=== PATIENT | female | born 1985 ===

== ENCOUNTER 2017-09-08 | Emergency (ER) | payer MEDICAID ==
[2017-09-08 00:08] VITALS: BP 106/64; PULSE 69; TEMP 98.2; O2SAT 100
[2017-09-08] MEDS ORDERED: Tetanus/Diphtheria Toxoids 0.5 ml Syringe IM ONE (00:41)
--- NOTE | 2017-09-08 00:46 | C.PDOC ---
History Of Present Illness 32 year old female presents to the ED with complaints of a laceration to the left thumb sustained yesterday at 1800. Patient reports while attempting to slice a pumpkin she cut her left thumb. Patient denies weakness, numbness, and states Tetanus vaccine is not up to date. Time Seen by Provider: 09/08/17 00:13 Chief Complaint (Nursing): Abnormal Skin Integrity History Per: Patient History/Exam Limitations: no limitations Onset/Duration Of Symptoms: Days (1 day ) Current Symptoms Are (Timing): Still Present Location Of Injury: Left: Hand Recent travel outside of the [place]: No Past Medical History Reviewed: Historical Data, Nursing Documentation, Vital Signs Vital Signs: Last Vital Signs Temp 98.2 F 09/08/17 00:03 Pulse 69 09/08/17 00:03 Resp 20 09/08/17 00:55 BP 106/64 09/08/17 00:03 Pulse Ox 100 09/08/17 02:21 Family History: States: Unknown Family Hx - Social History Hx Alcohol Use: No Hx Substance Use: No - Immunization History Hx Tetanus Toxoid Vaccination: No Hx Influenza Vaccination: No Hx Pneumococcal Vaccination: No Review Of Systems Skin: Positive for: Other (laceration ) Neurological: Negative for: Weakness, Numbness Physical Exam - Physical Exam Appears: Non-toxic, No Acute Distress Skin: Warm, Dry, No Rash, Other (0.5 cm superficial laceration to palmar aspect of left thumb) Head: Atraumatic, Normacephalic, No Tenderness Eye(s): bilateral: Normal Inspection, PERRL, EOMI Oral Mucosa: Moist Extremity: Normal ROM, Capillary Refill (< 2 seconds ), No Swelling, Other (no active bleeding to left thumb ) Pulses: Left Radial: Normal, Right Radial: Normal Neurological/Psych: Oriented x3 ED Course And Treatment O2 Sat by Pulse Oximetry: 100 (RA) Pulse Ox Interpretation: Normal Progress Note: Patient was given Tetanus vaccine. Laceration - Laceration Repair Left thumb Wound Length (In cm): 0.5 Description Of Wound: Linear Wound Cleansed With: Betadine, Sterile Saline Wound Examination: Irrigated With Saline, No FB With Wound Exploration, No Tendon Injury With Wound Exploration Wound Closure: Steri Strips (2), Skin Glue Wound Complexity: Simple Disposition - Disposition Referrals: Ezekiel,Jose E, MD [Primary Care Provider] - Disposition: HOME/ ROUTINE Disposition Time: 00:42 Condition: STABLE Additional Instructions: Please keep wound clean and dry for at least 2 days Return to ER if worse Instructions: Skin Adhesive Care (ED), Steristrips (ED) Forms: [facility] (Tajik), Work Excuse Print Language: LITHUANIAN - Clinical Impression Clinical Impression: Finger laceration - PA / CARE CONNECTOR / Resident Statement MD/DO has reviewed & agrees with the documentation as recorded. - Scribe Statement The provider has reviewed the documentation as recorded by the Scribe Rylee Byrne All medical record entries made by the Gloria were at my direction and personally dictated by me. I have reviewed the chart and agree that the record accurately reflects my personal performance of the history, physical exam, medical decision making, and the department course for this patient. I have also personally directed, reviewed, and agree with the discharge instructions and disposition.
[2017-09-08 01:00] VITALS: RESP 20
== END 2017-09-08 01:12 | disposition home or self-care (01) ==
LOC: SUPCPDRO → C.ER
DX: S61.012A Laceration without foreign body of left thumb without damage to nail, initial encounter (principal); W45.8XXA Other foreign body or object entering through skin, initial encounter